=== PATIENT | male | born 1995 | race African-American/Black ===

== ENCOUNTER 2017-03-22 13:29 | Emergency (ER) | payer OTHER ==
[~2017-03-22] VITALS: Ht 182.9 cm; Wt 77.5 kg
[2017-03-22 13:54] VITALS: TEMP 37.3; Ht 182.9 cm; Wt 77.5 kg
[2017-03-22] MEDS ORDERED: DEXAMETHASONE INJ 10 MG in SYRINGE 0 ML IV STA (14:29)
[2017-03-22] MEDS ORDERED: SODIUM CHLORIDE 0.9% 1000ML 1,000 ML IV STA (14:29)
[2017-03-22] MEDS ORDERED: AMPICILLIN/SULBACTAM SOD INJ 3,000 MG in SODIUM CHLORIDE 0.9% 100ML 100 ML IV STA (14:29)
[2017-03-22] MEDS ORDERED: DEXAMETHASONE **PF** INJ 10 MG/ML VIAL ONE (14:33)
[2017-03-22 14:52] LABS: BASO % 0.2 %; BASO ABS # 0.02 K/uL (0-0.2); EOS % 0.2 %; EOS ABS # 0.02 K/uL (0-0.5); HEMATOCRIT 42.2 % (42-52); HEMOGLOBIN 14.5 g/dL (14.0-18.0); IG# 0.02 K/uL (0.00-0.02); LYMPH % 23.4 %; LYMPH ABS # 1.92 K/uL (1.2-3.4); MEAN CELL VOLUME 85.8 fL (80-100); MEAN CORPUSCULAR HEMOGLOBIN 29.5 pg (25-34); MEAN CORPUSCULAR HGB CONC 34.4 g/dl (32-36); MEAN PLATELET VOLUME 9.6 fL (7.4-10.4); NEUT ABS # 5.33 K/uL (1.4-6.5); PLATELET COUNT 234 K/uL (130-400); RED CELL DISTRIBUTION WIDTH CV 13.4 % (11.5-14.5); RED CELL DISTRIBUTION WIDTH SD 42.3 fL (36.4-46.3); WHITE BLOOD COUNT 8.21 K/uL (4.8-10.8)
[2017-03-22 15:08] LABS: CALCIUM 9.2 mg/dl (8.5-10.1); CREATININE 1.23 mg/dl (0.60-1.40); POTASSIUM 4.1 mmol/L (3.5-5.1)
[2017-03-22] MEDS ORDERED: ACETAMINOPHEN 500 MG TAB PO STA (16:13)
[2017-03-22] MEDS ORDERED: BENZOCAIN/TETRACA/BUTAM SPRAY 200 APPLN/20 GM SPRY ONE (17:45)
--- NOTE | 2017-03-22 17:47 | EMERGENCY ROOM VISIT NOTE ---
History First contact with patient: 14:10 Chief Complaint: EAR PAIN Stated Complaint: EAR PAIN/THROAT PAIN - SENT BY History of Present Illness The patient is a 21 year old male who presents to the Emergency Room via private vehicle accompanied by his parents with complaints of "ear/throat painreferred by ". The patient states that for the past 4 days he has had a sore throat, localized to the left side. 3 days ago he began with a voice change, as well as inability to fully open his mouth. He notes pain now that he rates as a 6/10 in the posterior left pharynx. He does have a history of streptococcal pharyngitis. He denies any fevers, chills, nausea, vomiting, chest pain, shortness of breath, headache. Review of Systems A complete 6-point Review of Systems was discussed with the patient, with pertinent positives and negatives listed in the History of Present Illness. All remaining Review of Systems questions can be considered negative unless otherwise specified. 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 plays baseball Current/Historical Medications Scheduled Clindamycin Hcl (Cleocin), 1 CAP PO TID Methylprednisolone (Medrol Dosepak), 0 PO DAILY Penicillin V Potassium (Penicillin V Potassium), 10 ML PO QID Scheduled PRN Hydrocodone-Acetaminophen (Hydrocodone/Acetami 7.5/325MG 15ML), 5 ML PO Q6 PRN for Pain Physical Exam Vital Signs Date Time Temp Pulse Resp B/P (MAP) Pulse Ox O2 Delivery O2 Flow Rate FiO2 03/22/17 18:28 78 16 122/82 97 03/22/17 16:45 89 16 121/75 99 Room Air 03/22/17 15:29 86 18 128/78 100 03/22/17 13:54 37.3 88 16 137/77 97 Room Air Physical Exam VITAL SIGNS - Vital signs and nursing notes were reviewed. Stable. GENERAL - 21-year-old male appearing his stated age who is in no acute distress. Communicates well with provider and answers questions appropriately. SKIN - Without rashes. HEAD - NC/AT. EYES - Sclera anicteric. EARS - No deformities of external structures noted on gross examination bilaterally. No pain elicited with palpation of the tragus bilaterally. External auditory canals without discharge or otorrhea. Tympanic membranes pearly kohler without retraction or bulging. No fluid or purulent material visualized behind the TM. Handle of malleus, umbo, cone of light, pars tensa/ flaccid all easily visualized. NOSE - Midline and without cyanosis. No epistaxis or purulent drainage noted. MOUTH/OROPHARYNX - Without perioral cyanosis. Buccal mucosa pink and moist and without leukoplakia. Trismus noted, there is soft palate involvement of the patient's posterior left pharynx, with left tonsillar hypertrophy that is difficult to visualize secondary to the patient not being able to fully extend the tongue over the mouth, however I do suspect 3+ unilateral left-sided tonsillar hypertrophy. He is managing secretions and is not drooling. NECK - Neck with FROM. Supple to palpation. No appreciable unilateral left anterior cervical lymphadenopathy noted. No nuchal rigidity. Medical Decision & Procedures Laboratory Results 03/22/17 14:44 Red Blood Count 4.92, Mean Corpuscular Volume 85.8, Mean Corpuscular Hemoglobin 29.5, Mean Corpuscular Hemoglobin Concent 34.4, Mean Platelet Volume 9.6, Neutrophils (%) (Auto) 65.0, Lymphocytes (%) (Auto) 23.4, Monocytes (%) (Auto) 11.0, Eosinophils (%) (Auto) 0.2, Basophils (%) (Auto) 0.2, Neutrophils # (Auto ) 5.33, Lymphocytes # (Auto) 1.92, Monocytes # (Auto) 0.90, Eosinophils # (Auto ) 0.02, Basophils # (Auto) 0.02 03/22/17 14:44 Test 03/22/17 14:44 White Blood Count 8.21 K/uL (4.8-10.8) Red Blood Count 4.92 M/uL (4.7-6.1) Hemoglobin 14.5 g/dL (14.0-18.0) Hematocrit 42.2 % (42-52) Mean Corpuscular Volume 85.8 fL (80-100) Mean Corpuscular Hemoglobin 29.5 pg (25-34) Mean Corpuscular Hemoglobin Concent 34.4 g/dl (32-36) Platelet Count 234 K/uL (130-400) Mean Platelet Volume 9.6 fL (7.4-10.4) Neutrophils (%) (Auto) 65.0 % Lymphocytes (%) (Auto) 23.4 % Monocytes (%) (Auto) 11.0 % Eosinophils (%) (Auto) 0.2 % Basophils (%) (Auto) 0.2 % Neutrophils # (Auto) 5.33 K/uL (1.4-6.5) Lymphocytes # (Auto) 1.92 K/uL (1.2-3.4) Monocytes # (Auto) 0.90 K/uL (0.11-0.59) Eosinophils # (Auto) 0.02 K/uL (0-0.5) Basophils # (Auto) 0.02 K/uL (0-0.2) RDW Standard Deviation 42.3 fL (36.4-46.3) RDW Coefficient of Variation 13.4 % (11.5-14.5) Immature Granulocyte % (Auto) 0.2 % Immature Granulocyte # (Auto) 0.02 K/uL (0.00-0.02) Anion Gap 6.0 mmol/L (3-11) Est Creatinine Clear Calc Drug Dose 105.0 ml/min Estimated GFR () 97.3 Estimated GFR (Non- 84.0 BUN/Creatinine Ratio 17.3 (10-20) Calcium Level 9.2 mg/dl (8.5-10.1) Monoscreen NEG (NEG) Medications Administered Medications (Trade) Dose Ordered Sig/Gia Route Start Time Stop Time Status Last Admin Dose Admin Ampicillin Sodium/ Sulbactam Sodium 3000 mg/Sodium Chloride 108 ml @ 200 mls/hr NOW STAT IV 03/22/17 14:29 03/22/17 15:01 DC 03/22/17 14:54 200 MLS/HR Sodium Chloride 1,000 ml @ 999 mls/hr Q1H1M STAT IV 03/22/17 14:29 03/22/17 15:29 DC 03/22/17 14:46 999 MLS/HR Dexamethasone Sodium Phosphate (Dexamethasone Inj Pf) 10 mg STK-MED ONCE .ROUTE 03/22/17 14:33 03/22/17 14:34 DC 03/22/17 14:46 10 MG Acetaminophen (Tylenol Tab) 500 mg NOW STAT PO 03/22/17 16:13 03/22/17 16:15 DC 03/22/17 16:44 500 MG Benzocaine/ Butamben/ Tetracaine HCl (Cetacaine [place]) 1 appln STK-MED ONCE .ROUTE 03/22/17 17:45 03/22/17 17:46 DC 03/22/17 18:02 1 APPLN Medical Decision Patient was seen and evaluated as above. He presents to us today with trismus, hot potato voice, and left-sided unilateral tonsillar edema. I suspect peritonsillar abscess. IV access was initiated, the above workup was performed. He was given Decadron, Unasyn, fluids. He was given Tylenol for pain. Dr. Muñiz, of ENT came to light with the patient. An attempt was made at aspiration and was negative for collection. He has a large tonsillar cellulitis. I will treat with penicillin and vancomycin per recommendation from the ENT doctor. I will also add a Medrol Dosepak, and Lortab for pain. He was educated upon such. He appears stable for outpatient management. He is to follow with the ENT doctor on Wednesday. There is no concern of leukocytosis or anemia. Monospot is negative. Dehydrated on metabolic panel. He was educated upon management, educated upon worrisome symptoms which to return, had questions as per the discharge, and was discharged home in good condition. In evaluation and treatment of this patient the following differential diagnoses were entertained: Peritonsillar abscess, sialitis, retropharyngeal abscess, mono, among others. Impression Primary Impression: Peritonsillar cellulitis Departure Information Dispostion Home / Self-Care Condition GOOD Prescriptions Hydrocodone-Acetaminophen (HYDROCODONE/ACETAMI 7.5/325MG 15ML) 1 Araseli Araseli 5 ML PO Q6 Y for Pain, #60 ML Prov: River Maloney PA-C 03/22/17 Methylprednisolone (MEDROL DOSEPAK) 4 Mg Kristian 0 PO DAILY, #1 PKT Prov: River Maloney PA-C 03/22/17 Clindamycin Hcl (CLEOCIN) 300 Mg Cap 1 CAP PO TID for 7 Days, #21 CAP Prov: River Maloney PA-C 03/22/17 Penicillin V Potassium (PENICILLIN V POTASSIUM) 250 Mg/5 Ml Araseli 10 ML PO QID for 10 Days, #400 ML Prov: River Maloney PA-C 03/22/17 Referrals No Doctor, Assigned (PCP) Nithin Muñiz M.D. Patient Instructions My [facility] Additional Instructions You were seen in the emergency department for your sore throat. You were prescribed Penicillin to be taken every 6 hours. This is an antibiotic. All antibiotics have the potential to cause diarrhea. Stop this medication and contact a medical provider if you were to develop any significant adverse side effects including: wheezing, shortness of breath, passing out, vomiting, or a diffuse rash. Always take antibiotics as directed and COMPLETE the ENTIRE course regardless of the improvement of your symptoms. Clindamycin 300mg every hours. Please break capsules and place in apple sauce. Lortab 5ml every [address] with this You have been prescribed a Medrol Dosepak. Take this medication as prescribed. You should take the COMPLETE 6-day course of this medication. This is an anti- inflammatory medicine that will help to minimize your symptoms. For pain and fever control, you can use the following [id number] medicines : - Regular strength (200 mg/tab) Advil (ibuprofen) 1-2 tabs every 4-6 hours as needed. Do not exceed a dose of 3200 mg per day. In addition to your prescribed medications, you can also use the following home remedies: - Warm salt-water gargles 4 times per day can soothe your throat and help to fight infection. Please follow-up with your nose and throat surgeon, Dr. Muñiz on Wednesday 3: 45 PM.
[2017-03-22] MEDS ORDERED: PENI250S14 PO (17:57)
[2017-03-22] MEDS ORDERED: METH4PAK PO (18:03)
[2017-03-22] MEDS ORDERED: HYDR1SOL10 PO (18:03)
[2017-03-22] MEDS ORDERED: CLIN300C2 PO (18:03)
--- NOTE | 2017-03-22 18:24 | ENT CONSULTATION ---
DATE OF CONSULTATION: 03/22/2017 PERSON REQUESTING CONSULTATION: AURELIO Holman in the Emergency Department. INDICATION: Rule out peritonsillar abscess. 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 He is still able to take p.o., but given the progress of his symptoms which included a very sore throat, primarily in the left, along with difficulty swallowing, he thought it would be best to seek care of the ED. As far as review of systems, past medical history, they are already well documented and I will not add the chart lower. PHYSICAL EXAMINATION: I was examined him in module D3. His mom and were present. In general, he had a hot potato voice. However, he did not appear acutely well, when I asked him he said he was feeling better after the steroids, IV fluids, and IV antibiotics. He did have trismus. He did not have fullness of the peritonsillar area. He did not have uvular deviation. Back of his throat was sprayed with Cetacaine spray. A #18 gauge needle was placed in the peritonsillar area. There was no return of pus, just blood. ASSESSMENT AND PLAN: This is a left peritonsillar cellulitis. I spoke with River and the patient we be placed on penicillin 500 mg 4 times a day for a 10-day course. Additionally, he will take clindamycin 300 mg 3 times a day for a 7-day course. Trigg will be ruled out with a Monospot. He will be provided with oral steroids and oral pain medicine as well. He will follow up with me in 2 days, which will be Wednesday, March 24. The patient will gargle 4 times a day with salt water. He was also directed to protect his gutby drinking kefir. [facility]
[2017-03-22 18:28] VITALS: BP 122/82; PULSE 78; O2SAT 97
== END 2017-03-22 18:28 | disposition home or self-care (01) ==
LOC: C.EDB 13:30 → C.EDD 18:28
DX: J36 Peritonsillar abscess (principal)